=== PATIENT | male | born 1955 | race Caucasian/White ===

== ENCOUNTER 2018-09-17 13:32 | Outpatient (REF) | payer MEDICARE, MEDICAID, SELFPAY ==
[2018-09-17 21:20] LABS: ALT 35 U/L (12-78); AST 23 U/L (15-37); Albumin 4.2 g/dL (3.4-5.0); Alkaline Phosphatase 116 U/L (46-116); Anion Gap 8.1 mmol/L (3-11); BUN 12 mg/dL (7-18); Bilirubin, Total 1.1 mg/dL (0.2-1.0); CO2 29.9 mmol/L (21.0-32.0); CREATININE 0.96 mg/dL (0.70-1.30); Calcium 9.4 mg/dL (8.5-10.1); Chloride 100 mmol/L (98-107); Cholesterol 147 mg/dL (50-200); Glucose 87 mg/dL (70-100); HDL Cholesterol 41 mg/dL (40-60); LDL CHOLESTEROL 85 mg/dL (<100); Potassium 4.3 mmol/L (3.5-5.1); Sodium 138 mmol/L (136-145); Total Protein 7.3 g/dL (6.4-8.2); Triglyceride 114 mg/dL (30-150)
== END 2018-09-17 13:52 ==
LOC: NCHCN 13:32
PROVIDERS: PCP Physician Assistant Medical; Visit Provider Physician Assistant Medical
DX: E78.5 Hyperlipidemia, unspecified (principal); F32.9 Major depressive disorder, single episode, unspecified; L20.9 Atopic dermatitis, unspecified
CPT/HCPCS: 80053; 80061; 83721

== ENCOUNTER → 2019-09-12 12:47 | Outpatient (BNVA) | payer MEDICARE, MEDICAID, SELFPAY | PROVIDERS: PCP Physician Assistant Medical; Referring Provider Physician Assistant Medical; Visit Provider Surgery | DX: Z12.11 Encounter for screening for malignant neoplasm of colon (principal); Z86.010 Personal history of colon polyps; Z87.898 Personal history of other specified conditions | CPT/HCPCS: 99202 ==

== ENCOUNTER 2019-10-09 06:03 | Day surgery (SDC) | payer MEDICARE, MEDICAID, SELFPAY ==
[2019-10-09 06:21] VITALS: BP 130/73; PULSE 57; RESP 16; TEMP 36.5; O2SAT 97
[2019-10-09] MEDS: Lactated Ringers 1,000 ML 100 ML IV (06:50)
--- NOTE | 2019-10-09 07:35 | W.COLOREPORT ---
Date of service: 10/09/19 Time of Service: 07:35 Colonoscopy Report Date of procedure: 10/09/19 Pre-op diagnosis general: A. polyps Procedure: CE Surgeon: Rosibel Ramirez Anesthesia proc note operative: MAC Procedure Description: After informed consent was obtained the patient was taken to the procedure room and placed in a left decubitous position. Monitors were applied and a time out was done. The patients name, date of , procedure, allergies to medications and metal in their body was reviewed. The patient was then sedated. Once sedated and comfortable a rectal exam was done. External exam was normal. Internal exam revealed a normal sphincter tone and no palpable masses. The prostate nl. The scope was then introduced and retrofelexed. No internal hemorrhoids were identified. The scope was then advanced to the cecum w/out difficulty. The TI and appendiceal orifice were identified. The prep was adequate. The scope was then slowly retracted over 10 minutes back into the rectum. Polyps were removed at 85cm with a cold biting forcep. It does appear to be a adenomatous polyp. all specimen is retrieved and no bleeding is noted. And he has no diverticular disease. No hemorrhoidal disease. The patient tolerated the procedure well and there were no immediate complications. Follow up: The patient should follow up in 5 years unless they develop changes in bowel habits or other new gastrointestinal complaints.
--- NOTE | 2019-10-09 08:00 | BOWEL_PTH ---
PATIENT: Candido Yeager LOC: [facility] U#:[id number] AGE/SX: 64/M ROOM: RE10/09/[address]: Rosibel Ramirez : 1955 BED: DIS: 10/09/2019 SPEC #: [id number] RECD: 10/09/19 11:40 STATUS: LESLY REQ #: [id number] MERRY: 10/09/19 08:[address]: Rosibel Ramirez DEPT: Surgical Specimen RECD BY: Jessy Fierro ENTERED: 10/09/19 11:41 SP TYPE: Bowel OTHR DR: Giorgio Ramirez Tissues: 1 - BIOPSY BOWEL Procedures: GROSS AND MICRO LEVEL 4 Comments: [id number]
[2019-10-09 08:15] VITALS: BP 118/65; PULSE 66; RESP 21; TEMP 36.5; O2SAT 97
[2019-10-09] MEDS: Albuterol/Ipratropium 3 ML UPD VIAL UPD (08:17)
[2019-10-09 08:20] VITALS: BP 113/67; PULSE 62; RESP 29; TEMP 36.5; O2SAT 97
[2019-10-09 08:25] VITALS: BP 107/68; PULSE 66; RESP 22; TEMP 36.5; O2SAT 98
[2019-10-09 08:30] VITALS: BP 112/70; PULSE 67; RESP 13; TEMP 36.5; O2SAT 97
[2019-10-09 09:14] VITALS: BP 115/70; PULSE 61; RESP 16; TEMP 36.6; O2SAT 96
--- NOTE | 2019-10-09 10:15 | W.PM.DSUDISC ---
Discharge Plan Disposition Patient Disposition: HOME Condition: Good Discharge Details Reason For Visit: colon scope Attending Provider: Rosibel Ramirez Primary Care Provider: Giorgio Ramirez Home Meds and New Rx's Prescriptions: No Action fluoxetine [Prozac] 10 MG capsule 10 mg PO DAILY RF: 0 triamcinolone acetonide 0.1 % cream 1 applic TP BID RF: 0 atorvastatin 20 mg tablet 20 mg PO QHS RF: 0 Discharge Instructions Additional Instructions: Findings:x1 polyp. no asa/ibuprofen for 5 days. tylenol is OK Follow up: will send a letter w/ the results of the polyp repeat in 5 yrs time Please call if you develop: fevers >101.5 Nausea or Vomiting Abdominal pain that is not transient DAY SURGERY UNIT POST COLONOSCOPY INSTRUCTIONS 1. Because there will be medication in your system for the next 24 hours, you may feel a little sleepy. Your coordination will be affected. Therefore: a. Do not drive or operate dangerous equipment for 24 hours. b. Do not drink alcohol beverages for 24 hours (not even beer). c. Plan to go home and rest for the day. 2. Generally there are no restrictions on your activity after a day or so has gone by, but you may feel a bit fatigued for a few days. 3 After you arrive home you may have a light meal and return to a normal diet as you can tolerate it without feeling sick to your stomach. 4. After surgery, you may feel pain or discomfort. This should be only transient, but if it persists please contact your doctor. 5. If there are any questions regarding the findings of your procedure, please feel free to contact your doctor. 6. If you are unable to contact your doctor with a problem, contact the hospital at [phone]. 7. Continue all your regular medications unless directed otherwise. I understand the above instructions and have no questions. Signature of Patient or Responsible Adult Escort Date/Time Name of Responsible Adult Escort Signature of Nurse Date/Time Stand Alone Forms: Colonoscopy Post Instructions, Cass Stephens (DSU) Activity:: no lifting over 20#'s for 3 days or strenuous activity Diet:: Normal Diet Discharge Orders Discharge Orders: Discharge Order (Routine); Ordered 10/09/19 Ordered By: Rosibel Ramirez
== END 2019-10-09 10:20 | disposition home or self-care (01) ==
PROVIDERS: PCP Physician Assistant Medical; Visit Provider Surgery
PROC: 0DJD8ZZ Inspection of Lower Intestinal Tract, Via Natural or Artificial Opening Endoscopic (ICD-10-PCS; CPT 45378; principal; 2019-10-09 07:30)
DX: Z12.11 Encounter for screening for malignant neoplasm of colon (principal); D12.6 Benign neoplasm of colon, unspecified
CPT/HCPCS: 45380; 88305; J2001; J7620

== ENCOUNTER 2019-10-22 17:49 | Outpatient (REF) | payer MEDICARE, MEDICAID, SELFPAY ==
[2019-10-22 20:16] LABS: ALT 38 U/L (16-63); AST 21 U/L (15-37); Albumin 4.2 g/dL (3.4-5.0); Alkaline Phosphatase 114 U/L (46-116); Anion Gap 8.9 mmol/L (3-11); BUN 9 mg/dL (7-18); CO2 27.1 mmol/L (21.0-32.0); CREATININE 1.24 mg/dL (0.70-1.30); Calcium 9.4 mg/dL (8.5-10.1); Calculated LDL 78 mg/dL (<100); Chloride 102 mmol/L (98-107); Cholesterol 155 mg/dL (<200); Estimated GFR 59.07 (mL/min/1.73m2); Glucose 92 mg/dL (74-106); HDL Cholesterol 29 mg/dL (40-60); Potassium 4.7 mmol/L (3.5-5.1); Sodium 138 mmol/L (136-145); Triglyceride 241 mg/dL (<150)
== END 2019-10-22 18:09 ==
LOC: NCHCN 17:49
PROVIDERS: PCP Physician Assistant Medical; Visit Provider Physician Assistant Medical
DX: E78.5 Hyperlipidemia, unspecified (principal)
CPT/HCPCS: 80053; 80061

== ENCOUNTER 2020-09-28 16:21 | Outpatient (REF) | payer MEDICARE, MEDICAID, SELFPAY ==
[2020-09-28 20:45] LABS: ALT 41 U/L (16-63); AST 23 U/L (15-37); Albumin 4.1 g/dL (3.4-5.0); Alkaline Phosphatase 111 U/L (46-116); Anion Gap 7.6 mmol/L (3-11); BUN 11 mg/dL (7-18); Bilirubin, Total 0.5 mg/dL (0.2-1.0); CO2 29.4 mmol/L (21.0-32.0); CREATININE 1.1 mg/dL (0.70-1.30); Calcium 9.5 mg/dL (8.5-10.1); Calculated LDL 76 mg/dL (<100); Chloride 104 mmol/L (98-107); Cholesterol 140 mg/dL (<200); Glucose 93 mg/dL (74-106); HDL Cholesterol 37 mg/dL (40-60); Potassium 5.1 mmol/L (3.5-5.1); Sodium 141 mmol/L (136-145); Triglyceride 139 mg/dL (<150)
== END 2020-09-28 16:22 | disposition home or self-care (01) ==
LOC: NCHCN 16:21
PROVIDERS: PCP Physician Assistant Medical; Visit Provider Physician Assistant Medical
DX: E78.5 Hyperlipidemia, unspecified (principal)
CPT/HCPCS: 80053; 80061

== ENCOUNTER 2021-10-03 17:18 | Outpatient (REF) | payer MEDICARE, MEDICAID, SELFPAY ==
[2021-10-03 19:37] LABS: ALT 34 U/L (16-63); AST 6 U/L (15-37); Alkaline Phosphatase 112 U/L (46-116); Anion Gap 8.5 mmol/L (3-11); BUN 9 mg/dL (7-18); Bilirubin, Total 0.7 mg/dL (0.2-1.0); CO2 25.5 mmol/L (21.0-32.0); Calculated LDL 96 mg/dL (<100); Chloride 103 mmol/L (98-107); Cholesterol 174 mg/dL (<200); Glucose 101 mg/dL (74-106); HDL Cholesterol 37 mg/dL (40-60); Potassium 4.2 mmol/L (3.5-5.1); Sodium 137 mmol/L (136-145); Total Protein 7.3 g/dL (6.4-8.2); Triglyceride 209 mg/dL (<150)
[2021-10-04 18:40] LABS: PSA, Screening 1.5 ng/mL (<=4.5)
== END 2021-10-03 17:19 | disposition home or self-care (01) ==
LOC: NCHCN 17:18
PROVIDERS: PCP Physician Assistant Medical; Visit Provider Physician Assistant Medical
DX: E78.5 Hyperlipidemia, unspecified (principal); F52.21 Male erectile disorder; Z12.5 Encounter for screening for malignant neoplasm of prostate
CPT/HCPCS: 80053; 80061; 84153

== ENCOUNTER 2022-05-09 13:44 | Outpatient (REF) | payer MEDICARE, MEDICAID, SELFPAY ==
[2022-05-09 16:44] LABS: HCT 45.1 % (40.0-50.0); MCH 31.4 pg (27.0-33.0); MCHC 33.3 % (32.0-36.0); MCV 94 fL (80-95); MPV 9.6 fL (8.0-11.0); Platelet Count 371 10^3/uL (130-400); RBC 4.78 10^6/uL (4.36-5.78); RDW 12.8 % (11.8-14.1); RDW-SD 44.6 fL
[2022-05-09 16:57] LABS: ALT 30 U/L (16-63); AST 20 U/L (15-37); Alkaline Phosphatase 102 U/L (46-116); Anion Gap 7.3 mmol/L (3-11); BUN 11 mg/dL (7-18); Bilirubin, Total 0.5 mg/dL (0.2-1.0); CO2 28.7 mmol/L (21.0-32.0); Calcium 9.2 mg/dL (8.5-10.1); Calculated LDL 87 mg/dL (<100); Chloride 104 mmol/L (98-107); Cholesterol 161 mg/dL (<200); Estimated GFR 83.52 (mL/min/1.73m2); Glucose 103 mg/dL (74-106); HDL Cholesterol 39 mg/dL (40-60); Potassium 4.3 mmol/L (3.5-5.1); Sodium 140 mmol/L (136-145); Total Protein 7.2 g/dL (6.4-8.2); Triglyceride 178 mg/dL (<150)
[2022-05-09 22:40] LABS: Estimated Average Glucose 120 mg/dL; Hemoglobin A1C 5.8 % (<5.7)
== END 2022-05-09 13:45 | disposition home or self-care (01) ==
LOC: NCHCN 13:44
PROVIDERS: PCP Physician Assistant Medical; Visit Provider Physician Assistant Medical
DX: E78.5 Hyperlipidemia, unspecified (principal); R73.9 Hyperglycemia, unspecified; F32.9 Major depressive disorder, single episode, unspecified; F17.200 Nicotine dependence, unspecified, uncomplicated
CPT/HCPCS: 80053; 80061; 85027; 83036

== ENCOUNTER 2022-05-24 01:46 | Outpatient (CLI) | payer MEDICARE, MEDICAID, SELFPAY ==
--- NOTE | 2022-05-24 | DI.CTLCSR_ITS ---
Exam(s) CT CHEST LUNG CANCER SCREEN EXAM: CT CHEST LUNG CANCER SCREEN CLINICAL HISTORY: SCREENING FOR LUNG CA, SMOKER, F17.210 TECHNIQUE: Imaging Protocol: Axial computed tomography images with coronal and sagittal reformatted images were created and reviewed. Low dose screening protocol. COMPARISON: CR CHEST 2 VIEWS PA,LAT from 06/17/2015 FINDINGS: Tracheobronchial tree: No bronchiectasis or mucus plugging.. Mediastinum and Manasa: No dominant adeno katrina or fluid collection. Pulmonary parenchyma: No consolidation or dominant measurable mass. Moderate emphysematous changes. Mild interstitial changes greater at the lung bases. Lung Nodules: 8 millimeter lobulated nodule with associated calcification in the left upper lobe, lik jesse a granuloma. Pleura: No effusion. No pneumothorax. Heart: The heart is not dilated. Mild coronary artery calcifications are seen. Aorta: Thoracic aorta non-dilated. Mild atherosclerotic changes. Upper abdomen: Unremarkable. Bones: Unremarkable for age. Soft Tissues: Unremarkable. IMPRESSION: 8 millimeter nodule with associated calcification in the left upper lobe. This may represent a granu gal. Six-month follow-up recommended. Lung RADS Cat 3 - Probably Benign: Probably benign finding(s) - short term follow-up suggested; inclu de nodules with a low likelihood of becoming a clinically active cancer. Lung-RADS 1.0 CATEGORIES: Category 0 - Prior chest CT exam(s) being located for comparison. Category 1 - Annual screening in 12 months. No nodules or definitely benign nodules. Category 2 - Annual screening in 12 months. Benign appearance. Nodules with low likelihood of becomin g active cancer. Category 3 - 6-month follow-up. Probably benign. Short-term follow-up suggested. Nodules with low lik elihood of becoming active cancer. Category 4A - 3-month follow-up and CT/PET if >8 mm in size. Suspicious finding. Findings which requi re additional testing. Category 4B - Findings which require additional testing and tissue sampling. Category 4X - Category 3 or 4 nodules with additional features or imaging findings that increases the suspicion of malignancy. Modifier S- Potentially clinically significant findings (non lung cancer) RADIATION DOSE DELIVERED: 74.33mGy.cm Total DLP DATA REPOSITORY: All CT scans at this facility are submitted to the National Radiology Data Registry (NRDR) Dose Index Registry (DIR) with the [employer] (A[employer]). RADIATION OPTIMIZATION: All CT scans at this facility use at least one of these dose optimization te chniques: automated exposure control; mA and/or kV adjustment per patient size (includes targeted exa ms where dose is matched to clinical indication); or iterative reconstruction.
== END 2022-05-24 02:06 ==
PROVIDERS: PCP Physician Assistant Medical; Visit Provider Physician Assistant Medical
DX: Z12.2 Encounter for screening for malignant neoplasm of respiratory organs (principal); F17.210 Nicotine dependence, cigarettes, uncomplicated; R91.1 Solitary pulmonary nodule; J43.8 Other emphysema
CPT/HCPCS: 71271

== ENCOUNTER 2022-07-11 18:15 | Outpatient (REF) | payer MEDICARE, MEDICAID, SELFPAY ==
[2022-07-11 17:35] LABS: Glucose 103 mg/dL (74-106)
== END 2022-07-11 18:16 | disposition home or self-care (01) ==
LOC: NCHCN 18:15
PROVIDERS: PCP Physician Assistant Medical; Visit Provider Physician Assistant Medical
DX: R73.03 Prediabetes (principal)
CPT/HCPCS: 82947

== ENCOUNTER 2023-05-08 14:08 | Outpatient (REF) | payer MEDICARE, MEDICAID, SELFPAY ==
[2023-05-08 19:59] LABS: ALT 31 U/L (16-63); AST 21 U/L (15-37); Albumin 4.3 g/dL (3.4-5.0); Alkaline Phosphatase 82 U/L (46-116); Anion Gap 6.9 mmol/L (3-11); BUN 11 mg/dL (7-18); Bilirubin, Total 0.7 mg/dL (0.2-1.0); CO2 29.1 mmol/L (21.0-32.0); Calcium 10.4 mg/dL (8.5-10.1); Calculated LDL 78 mg/dL (<100); Chloride 102 mmol/L (98-107); Cholesterol 161 mg/dL (<200); Estimated GFR 83.01 (mL/min/1.73m2); Glucose 97 mg/dL (74-106); HDL Cholesterol 44 mg/dL (40-60); Potassium 4.7 mmol/L (3.5-5.1); Sodium 138 mmol/L (136-145); Total Protein 7.7 g/dL (6.4-8.2); Triglyceride 196 mg/dL (<150)
[2023-05-08 20:18] LABS: Hemoglobin A1C 5.6 % (<5.7)
[2023-05-09 18:50] LABS: PSA, Screening 1.7 ng/mL (<=4.5)
== END 2023-05-08 14:09 | disposition home or self-care (01) ==
LOC: NCHCN 14:08
PROVIDERS: PCP Physician Assistant Medical; Visit Provider Physician Assistant Medical
DX: E78.5 Hyperlipidemia, unspecified (principal); Z12.5 Encounter for screening for malignant neoplasm of prostate; R73.03 Prediabetes
CPT/HCPCS: 80053; 80061; 84153; 83036

== ENCOUNTER → 2023-05-25 01:41 | Outpatient (CLI) | payer MEDICARE, MEDICAID, SELFPAY ==
--- NOTE | 2023-05-25 | DI.CTLCSR_ITS ---
Exam(s) CT CHEST LUNG CANCER SCREEN EXAM: CT CHEST LUNG CANCER SCREEN CLINICAL HISTORY: CIGARETTE SMOKER, F17.210, SCREENING FOR LUNG CANCER TECHNIQUE: Imaging Protocol: Axial computed tomography images with coronal and sagittal reformatted images were created and reviewed COMPARISON: CT CT CHEST LUNG CANCER SCREEN from 05/24/2022 FINDINGS: Tracheobronchial tree: Patent where visualized. Pulmonary parenchyma: Moderate centrilobular emphysematous changes are present. No architectural dis tortion. There is dependent atelectasis in the lung bases. Lung Nodules: There is again seen an 8 mm nodule in the left upper lobe. (Series 3, image 204). Mediastinum and Manasa: No dominant adenopathy or fluid collection. The esophagus is unremarkable. Thyroid gland: Unremarkable. Lymph nodes: Unremarkable. Pleura: No effusion or pneumothorax. Heart: The heart is not dilated. Coronary artery calcifications are present. No pericardial effusion . Aorta: Thoracic aorta non-dilated.Atherosclerosis is present. Upper abdomen: There are renal cysts. There are 2 hypodensity seen in the right lobe of the liver. These may represent small cysts. CT scan of the abdomen or abdominal ultrasound may be obtained for further evaluation of the kidneys and liver. Soft Tissues: Unremarkable. Bones: Within normal limits. IMPRESSION: Stable 8 mm left upper lobe pulmonary nodule. No new pulmonary nodules. Lung RADS Cat 2 - Benign Appearance / Behavior: Nodules with a very low likelihood of becoming a clin ically active cancer due to size or lack of growth Lung-RADS 1.0 CATEGORIES: Category 0 - Prior chest CT exam(s) being located for comparison. Category 1 - Annual screening in 12 months. No nodules or definitely benign nodules. Category 2 - Annual screening in 12 months. Benign appearance. Nodules with low likelihood of becomin g active cancer. Category 3 - 6-month follow-up. Probably benign. Short-term follow-up suggested. Nodules with low lik elihood of becoming active cancer. Category 4A - 3-month follow-up and CT/PET if >8 mm in size. Suspicious finding. Findings which requi re additional testing. Category 4B - Findings which require additional testing and tissue sampling. Suspicious finding. Category 4X - Category 3 or 4 nodules with additional features or imaging findings that increases the suspicion of malignancy. Modifier S- Potentially clinically significant finding. (Non lung cancer) Unexpected findings RADIATION DOSE DELIVERED: 78.31mGy.cm Total DLP 78.31mGy.cmTotal DLP DATA REPOSITORY: All CT scans at this facility are submitted to the National Radiology Data Registry (NRDR) Dose Index Registry (DIR) with the [employer] (ACR). RADIATION OPTIMIZATION: All CT scans at this facility use at least one of these dose optimization te chniques: automated exposure control; mA and/or kV adjustment per patient size (includes targeted exa ms where dose is matched to clinical indication); or iterative reconstruction.
== END ==
PROVIDERS: PCP Physician Assistant Medical; Visit Provider Physician Assistant Medical
DX: F17.210 Nicotine dependence, cigarettes, uncomplicated (principal); Z12.2 Encounter for screening for malignant neoplasm of respiratory organs; R91.1 Solitary pulmonary nodule
CPT/HCPCS: 71271

== ENCOUNTER → 2023-11-19 00:56 | Outpatient (CLI) | payer MEDICARE, MEDICAID, SELFPAY ==
--- NOTE | 2023-11-19 | DI.US_ITS ---
Exam(s) US AAA SCREENING EXAM: US AAA SCREENING CLINICAL HISTORY: SCREENING FOR AAA VASCULAR DISORDER,i99.9 COMPARISON: No exams were available for comparison FINDINGS: Abdominal Aorta: Proximal: 2.6 x 2.7 cm Mid: 2.6 x 2.1 cm Distal: 2.2 x 1.7 cm Iliac's: Right: 0.1 x 1.0 cm Left: 1.3 x 1.3 cm IMPRESSION: No evidence of abdominal aortic aneurysm. DATA REPOSITORY:
== END ==
PROVIDERS: PCP Physician Assistant Medical; Visit Provider Physician Assistant Medical
DX: Z13.6 Encounter for screening for cardiovascular disorders (principal); I99.8 Other disorder of circulatory system
CPT/HCPCS: 76706

== ENCOUNTER 2024-06-04 15:27 | Outpatient (REF) | payer MEDICARE, MEDICAID, SELFPAY ==
[2024-06-04 16:26] LABS: ALT 33 U/L (16-63); AST 23 U/L (15-37); Albumin 4.3 g/dL (3.4-5.0); Alkaline Phosphatase 103 U/L (46-116); Anion Gap 10.3 mmol/L (3-11); BUN 14 mg/dL (7-18); Bilirubin, Total 1.01 mg/dL (0.2-1.0); CO2 26.7 mmol/L (21.0-32.0); CREATININE 1.1 mg/dL (0.70-1.30); Calcium 9.8 mg/dL (8.5-10.1); Calculated LDL 84 mg/dL (<100); Chloride 105 mmol/L (98-107); Cholesterol 159 mg/dL (<200); Estimated GFR 73.58 (mL/min/1.73m2); Glucose 98 mg/dL (74-106); HDL Cholesterol 52 mg/dL (40-60); Potassium 5.3 mmol/L (3.5-5.1); Sodium 142 mmol/L (136-145); Total Protein 7.2 g/dL (6.4-8.2); Triglyceride 115 mg/dL (<150)
[2024-06-04 21:59] LABS: PSA, Screening 1.8 ng/mL (<=4.5)
== END 2024-06-04 15:28 | disposition home or self-care (01) ==
LOC: NCHCN 15:27
PROVIDERS: PCP Physician Assistant Medical; Visit Provider Physician Assistant Medical
DX: E78.5 Hyperlipidemia, unspecified (principal); R73.03 Prediabetes; Z12.5 Encounter for screening for malignant neoplasm of prostate
CPT/HCPCS: 80053; 80061; 84153; 83036

== ENCOUNTER 2024-06-20 00:16 | Outpatient (CLI) | payer MEDICARE, MEDICAID, SELFPAY ==
--- NOTE | 2024-06-20 12:21 | DI.CTLCSR_ITS ---
Exam(s) CT CHEST LUNG CANCER SCREEN EXAM: CT CHEST LUNG CANCER SCREEN CLINICAL HISTORY: NICOTINE DEPENDENCE F17.210 TECHNIQUE: Imaging Protocol: Axial computed tomography images with coronal and sagittal reformatted images were created and reviewed. Low dose screening protocol. COMPARISON: CT CT CHEST LUNG CANCER SCREEN from 05/24/[address] CHEST LUNG CANCER SCREEN from 05/25/2023 FINDINGS: Tracheobronchial tree: No bronchiectasis or mucus plugging. Mediastinum and Manasa: No dominant adenopathy or fluid collection. Pulmonary parenchyma: No consolidation or dominant measurable mass. Fedi-bo-myninumj emphysematous c hanges. Mild interstitial changes at the posterior lung bases most of which likely represents depende nt changes.. Lung Nodules: Stable left upper lobe nodule. No new or suspicious nodules. Pleura: No effusion. No pneumothorax. Heart: The heart is not dilated. Mild coronary artery calcifications are seen. No pericardial effusio n. Aorta: Thoracic aorta non-dilated. Upper abdomen: Unremarkable. Stable low-density liver lesion, likely cyst. Bones: Unremarkable for age. Soft Tissues: Unremarkable. IMPRESSION: No suspicious pulmonary nodules. Lung RADS Cat 2 - Benign Appearance / Behavior: Nodules with a very low likelihood of becoming a clin ically active cancer due to size or lack of growth Lung-RADS 1.0 CATEGORIES: Category 0 - Prior chest CT exam(s) being located for comparison. Category 1 - Annual screening in 12 months. No nodules or definitely benign nodules. Category 2 - Annual screening in 12 months. Benign appearance. Nodules with low likelihood of becomin g active cancer. Category 3 - 6-month follow-up. Probably benign. Short-term follow-up suggested. Nodules with low lik elihood of becoming active cancer. Category 4A - 3-month follow-up and CT/PET if >8 mm in size. Suspicious finding. Findings which requi re additional testing. Category 4B - Findings which require additional testing and tissue sampling. Category 4X - Category 3 or 4 nodules with additional features or imaging findings that increases the suspicion of malignancy. Modifier S- Potentially clinically significant findings (non lung cancer) RADIATION DOSE DELIVERED: !Error Total DLP DATA REPOSITORY: All CT scans at this facility are submitted to the National Radiology Data Registry (NRDR) Dose Index Registry (DIR) with the [employer] (ACR). RADIATION OPTIMIZATION: All CT scans at this facility use at least one of these dose optimization te chniques: automated exposure control; mA and/or kV adjustment per patient size (includes targeted exa ms where dose is matched to clinical indication); or iterative reconstruction.
== END 2024-06-20 00:36 ==
LOC: DI 00:16
PROVIDERS: PCP Physician Assistant Medical; Visit Provider Physician Assistant Medical
DX: F17.210 Nicotine dependence, cigarettes, uncomplicated (principal); Z12.2 Encounter for screening for malignant neoplasm of respiratory organs
CPT/HCPCS: 71271

== ENCOUNTER → 2024-11-20 13:19 | Outpatient (BNVA) | payer MEDICARE, MEDICAID, SELFPAY | PROVIDERS: PCP Physician Assistant Medical; Referring Provider Physician Assistant Medical; Visit Provider Physical Therapy Assistant | DX: Z12.11 Encounter for screening for malignant neoplasm of colon (principal); Z86.0109 Personal history of other colon polyps | CPT/HCPCS: S0285 ==

== ENCOUNTER 2024-12-05 09:35 | Day surgery (SDC) | payer MEDICARE, MEDICAID, SELFPAY ==
--- NOTE | 2024-12-04 19:34 | W.PM.DSUDISC ---
Date of service: 12/05/24 Discharge Plan Disposition Patient Disposition: Home Condition: Good Discharge Details Reason For Visit: screening colonoscopy Attending Provider: Joel Cartagena Primary Care Provider: Giorgio Ramirez Home Meds and New Rx's Prescriptions: Continued fluoxetine [Prozac] 10 MG capsule 10 mg PO DAILY triamcinolone acetonide 0.1 % cream 1 applic TP BID atorvastatin 20 mg tablet 20 mg PO QHS Discontinued bisacodyl [Dulcolax (bisacodyl)] 5 mg tablet,delayed release (DR/EC) 5 mg PO ONCE Qty: 4 0RF Rx Instructions: Take per colonoscopy instructions provided by ordering providers office polyethylene glycol 3350 17 gram/dose powder 17 g PO ONCE Qty: 238 0RF Rx Instructions: Take per colonoscopy instructions provided by ordering providers office Discharge Instructions Instructions: Colon polyps Additional Instructions: Candido, was good to meet you today, and I hope you feel well after this procedure. I did find, and remove the polyp today. This will be sent to the pathologist for the review. Once I know the nature of this polyp, my office will be in touch with recommendations for future colonoscopies. If you need anything, or have any questions at all, please do not hesitate to ask. 1. If tolerated, consume a soft, low fiber diet for 1-2 days. [address] Do not drive, drink alcohol, operate machinery, make critical decisions, or do activities that require coordination or balance for 24 hours. 3. Because air was put into your colon during the procedure, expelling air from your rectum (passing gas or farting) is normal. 4. You may not have a bowel movement for 1-3 days because of the colonoscopy prep. This is normal. 5. Go directly to the emergency room if you notice any of the following: Develop chills (warm to touch), or if you have a thermometer and your temperature is above 101 Difficulty breathing or difficultly swallowing Persistent vomiting Severe abdominal pain, other than gas cramps Severe chest pain Black, tarry stools Any bleeding ? exceeding one tablespoon 6. Call your physician if the site where your intravenous was started becomes red, swollen, painful, and warm to touch. 7. Your physician has reviewed your pre-procedure medications. Please continue to take those medications as previously ordered. You will be given specific information/education regarding any changes to your medications before leaving. Stand Alone Forms: Anesthesia Discharge Inst., Cass Stephens (DSU) Activity:: Activity as Tolerated Diet:: As Tolerated Discharge Orders Discharge Orders: Discharge Order (Routine); Ordered 12/04/24 Ordered By: Joel Cartagena DS: Diagnosis Discharge Diagnosis (1) Encounter for screening colonoscopy: Status: Acute Asessment and Plan: Follow-up on polypectomy results
--- NOTE | 2024-12-04 19:37 | COLE_ITS ---
Date of service: 12/05/24 Time of Service: 11:44 Colonoscopy Report Date of procedure: 12/05/24 Pre-op diagnosis general: screening colonoscopy Post-op diagnosis procedure note: other (Colon polyp) Procedure: colonoscopy with polypectomy Surgeon: Joel Cartagena Anesthesia Type: General:No Airway Estimated blood loss (mL): 5 Pathology: other (0.5 cm polyp at 85 cm) Complications: None Disposition: same day Indications: Candido is a 69 year old man with a history of adenomatous polyps who needs a screening colonoscopy Prep: Miralax/Dulcolax Procedure Start Time: 11:13 Procedure End Time: 11:36 Retraction Time: 16 Findings: 0.5 cm flat polyp at 85 cm Procedure Description: After the induction of anesthesia, and with the patient in left lateral decubitus position, I began by performing an external anorectal exam.? Perineum and skin were normal, as was the anal verge.? There was no evidence of external hemorrhoids.? Next, I performed a digital rectal exam.? I did not appreciate any abnormal findings.? Next, I advanced a colonoscope into the rectal vault.? I performed retroflexion.? This appeared normal.? Using insufflation, I then advanced the colonoscope beyond the rectal folds and into the sigmoid colon before advancing towards the cecum.? The scope was noted to be in the cecum by identification of the ileocecal valve and appendiceal orifice.? I then began withdrawing the colonoscope using repeated irrigation as necessary for full evaluation of the colonic mucosa. ?Around 85 cm from the anal verge was a 0.5 cm flat polyp. This was removed in piecemeal with cold forceps. There was minimal bleeding. Once the scope was withdrawn to the level of the rectum, great care was taken to examine portions of the rectal folds.? Finally, the scope was withdrawn and the patient was brought to the same-day surgery recovery unit as the anesthetic wore off. ?The findings and instructions were shared with the patient prior to discharge. [place] Bowel Prep [place] Bowel Prep Right Colon: 1 Left Colon: 2 Transverse Colon: 2 Total Score: 5
[2024-12-05 10:23] VITALS: BP 125/80; PULSE 63; RESP 20; TEMP 37.2; O2SAT 95
[2024-12-05] MEDS: Lactated Ringers 1,000 ML 80 ML IV (10:35)
--- NOTE | 2024-12-05 10:37 | W.ANESPRE ---
General Info Date of Service Date Performed: 12/05/24 Height: 6 ft 1 in Weight: 75.5 kg Body Mass Index (BMI): 21.9 Surgical Procedure: Operation Date: 12/05/24 11:20 Proposed Procedure Side Surgeon p Colonoscopy Joel Cartagena MD Meds Allergies and Home Medications Allergies Allergy/AdvReac Type Severity Reaction Status Date / Time No Known Drug Allergies Allergy Unknown Verified 12/05/24 10:21 Home Medication ?Medication ?Instructions ?Recorded fluoxetine 10 mg capsule (Prozac) 10 mg PO DAILY 07/07/13 atorvastatin 20 mg tablet 20 mg PO QHS 06/24/19 triamcinolone acetonide 0.1 % 1 applic topical BID 06/24/19 topical cream Current Visit Medications: Current Medications Generic Name Dose Route Start Last Admin Trade Name Freq PRN Reason Stop Dose Admin Ringer's Solution 1,000 mls @ 80 mls/hr 12/05/24 06:00 12/05/24 10:35 IV 12/05/24 23:59 80 mls/hr INFUSION HA Administration IV Miscellaneous Supplies 1 each 12/05/24 06:00 Iv Access IV 12/05/24 23:59 DIRECTED HA Ondansetron HCl 4 mg 12/04/24 19:39 Ondansetron 4 Mg/2 Ml Vial IVP 01/03/25 19:38 Q4H PRN PRN Nausea / Vomiting Sodium Chloride 0 ml 12/05/24 06:00 Normal Saline Flush 10 Ml Syr IV 12/05/24 23:59 PRN PRN Sodium Chloride 0 ml 12/05/24 06:00 Normal Saline 10 Ml Vial IJ 12/05/24 23:59 DIRECTED PRN Sterile Water 0 ml 12/05/24 06:00 Water,Injection,Sterile 10 Ml Vial IJ 12/05/24 23:59 DIRECTED PRN PFSH Active Problems Active Problems: Problem Status Onset Code Encounter for screening colonoscopy Acute Z12.11 Tubular adenoma of colon Acute D12.6 Preop testing Acute Z01.818 History of developmental delay Acute Z87.898 Tubular adenoma of colon Acute D12.6 Medical History Medical History Onychomycosis due to dermatophyte Lung nodule, solitary Pre-diabetes Atopic dermatitis Depression Hyperlipidemia Tobacco abuse Elfrida of toe Surgical History Surgical History History of colonoscopy (~09/2019) S/P excision of ganglion cyst left wrist x 2 H/O bilateral cataract extraction History of bunionectomy H/O hernia repair Tobacco Smoking/Tobacco Use Status: Current every day Tobacco Type: cigarettes Smoking cigarettes per day: 10 Alcohol Alcohol Intake: former Substance Use Substance use: Never Substance use type: does not use Vital Signs and Lab Results Vital Signs Most Recent Vital Signs in EMR: Most Recent Vital Signs Temp Pulse Resp BP Pulse Ox 37.2 C 63 20 125/80 95 12/05/24 10:23 12/05/24 10:23 12/05/24 10:23 12/05/24 10:23 12/05/24 10:23 Anesthesia Assessment and Plan Anesthesia History Personal History: No History of Anesthesia Complications Family History: No Family History of Anesthesia Complications Exercise Tolerance Exercise Tolerance: Metabolic Equivalents>4 Pertinent Negatives Pertinent Negatives: No Symptoms of GERD Cardiac & Pulmonary Exam Cardiac Exam: Normal S1/S2 Heart Sounds Pulmonary Exam: Clear Bilateral Breath Sounds Implantable Cardiac Device Does patient have a Pacemaker or an ICD?: No Airway Exam Known Difficult Airway: No Mallampati Class: 2 Mouth Opening: Normal (> 3cm) Thyromental Distance: Greater than 3 cm Neck Range of Motion: Full ROM Neck Circumference: Normal Teeth Condition: Edentulous ASA Classification ASA Score: ASA 2 Emergency Case?: No NPO Status NPO Status: NPO Clears >2 hours, Solids >8 hours Anesthesia Plan Resuscitation Status: Full Code Anesthesia Technique: General Anesthesia Airway Planned: Natural Airway Monitors Used: Standard Monitors
[2024-12-05 10:39] VITALS: BMI 21.9
--- NOTE | 2024-12-05 11:25 | BOWEL_PTH ---
PATIENT: Candido Yeager LOC: [facility] U#:[id number] AGE/SX: 69/M ROOM: RE12/05/[address]: Joel Cartagena MD : 1955 BED: DIS: 12/05/2024 SPEC #: [id number] RECD: 12/05/24 12:42 STATUS: LESLY REQ #: [id number] MERRY: 12/05/24 11:[address]: Joel Cartagena DEPT: Surgical Specimen RECD BY: Jessy Fierro ENTERED: 12/05/24 12:44 SP TYPE: Bowel OTHR DR: Giorgio Ramirez Tissues: 1 - BIOPSY BOWEL Procedures: GROSS AND MICRO LEVEL 4 Comments: [id number]
[2024-12-05 11:43] VITALS: BP 122/59; PULSE 59; RESP 19; TEMP 36.3; O2SAT 96
[2024-12-05 12:22] VITALS: BP 135/71; PULSE 66; RESP 16; TEMP 36.4; O2SAT 96
--- NOTE | 2024-12-05 12:47 | W.ANESPOSTOP ---
Postoperative Evaluation Date, Time and Location Date Performed: 12/05/24 Time Performed: 12:47 Patient Location: Day Surgery Unit Vital Signs Most Recent Imported Vital Signs: Most Recent Vital Signs Temp Pulse Resp BP Pulse Ox 36.4 C L 66 16 135/71 96 12/05/24 12:22 12/05/24 12:22 12/05/24 12:22 12/05/24 12:22 12/05/24 12:22 Pain Score Most Recent Pain Score: Most Recent Pain Score Pain Level 0 12/05/24 10:23 Assessment Mental Status: Awake (Alert & Oriented to Patient Baseline) Airway and Respiratory Function: Patent airway with normal (patient baseline) respiratory exam Cardiovascular Function: Hemodynamically Stable Hydration Status: Adequately Hydrated Nausea & Vomiting: No Nausea or Vomiting Pain: Pt. Denies Any Pain Peripheral Nerve Block: Patient did not receive a nerve block Postoperative Comments:: Concern for aspiration during case. Pt. room air SpO2 96%, denies SOB, chest pain or worsened cough from his baseline. Discussed aspiration discharge instructions and when to return to hospital with him and friend Tory. Questions answered.
== END 2024-12-05 12:58 | disposition home or self-care (01) ==
LOC: SUR 09:36
PROVIDERS: PCP Physician Assistant Medical; Visit Provider Surgery
PROC: 0DJD8ZZ Inspection of Lower Intestinal Tract, Via Natural or Artificial Opening Endoscopic (ICD-10-PCS; CPT 45378; principal; 2024-12-05 11:15)
DX: Z12.11 Encounter for screening for malignant neoplasm of colon (principal); D12.3 Benign neoplasm of transverse colon
CPT/HCPCS: 45380; 88305; J2704